=== PATIENT | male | born 1960 | race Caucasian/White ===

== ENCOUNTER 2017-03-01 19:11 | Emergency (ER) | payer SELFPAY ==
[~2017-03-01] VITALS: Ht 177.8 cm; Wt 73.5 kg
[2017-03-01 19:51] VITALS: BP 121/80
--- NOTE | 2017-03-01 19:55 | PHYS DOC ---
Past Medical History Past Medical History: Other Additional Past Medical Histor: RIGHT INGUINAL HERNIA Past Surgical History: Tonsillectomy Alcohol Use: Occasionally Drug Use: Marijuana Adult General Chief Complaint Chief Complaint: ABDOMINAL PAIN HPI HPI Patient is a 56 year old male brought in by his mother with the complaint of pain in the area of his known right inguinal hernia. The patient has had this hernia for about 2 years. He recently mentioned it to his primary care doctor who sent him to see Dr. Pina. He saw Dr. Pina on Saturday and is in the process of getting scheduled for outpatient elective repair. This week, he's had more discomfort especially after his work to whole day. 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 The patient has been worrying about the complications that they talked to him about and he wants his hernia repaired as soon as possible. He's had no vomiting. Review of Systems Review of Systems Constitutional: Denies fever or chills [] GI: Denies abdominal pain, nausea, vomiting, bloody stools or diarrhea [] : Denies dysuria or hematuria or urinary retention Allergies Allergies Allergies Coded Allergies Type Severity Reaction Last Updated Verified No Known Drug Allergies 03/01/17 No Physical Exam Physical Exam Constitutional: Well developed, well nourished, no acute distress, non-toxic appearance. Alert, ambulatory, mentating normally. HENT: Normocephalic, atraumatic, bilateral external ears normal, nose normal. [ ] Eyes: conjunctiva normal, no discharge. [] Neck: Normal range of motion, no stridor. [] Abdomen: Bowel sounds normal, soft, no tenderness, nondistended, no masses, no pulsatile masses. Right inguinal area: There is no discernible "bulge". The right inguinal hernia is palpable. There is mild fullness that is essentially nontender. There is no evidence of incarcerated or strangulated hernia on exam. There is no enlargement of the scrotum. exam unremarkable. Skin: Warm, dry, no erythema, no rash. [] Extremities: No tenderness, no cyanosis, no clubbing, ROM intact, no edema. [] Neurologic: Alert and oriented X 3, normal motor function, normal sensory function, no focal deficits noted. [] Current Patient Data Vital Signs Vital Signs Date Time Temp Pulse Resp B/P (MAP) Pulse Ox O2 Delivery O2 Flow Rate FiO2 03/01/17 19:51 62 16 121/80 (94) 98 Room Air 03/01/17 19:25 97.7 97.7 EKG EKG [] Radiology/Procedures Radiology/Procedures [] Course & Med Decision Making Course & Med Decision Making Pertinent Labs and Imaging studies reviewed. (See chart for details) I discussed with the patient and his mother that his right inguinal hernia certainly does need to be repaired as soon as possible electively, but at this time there is no evidence that it needs to be repaired emergently. I discussed with them the indications for emergent repair. I discussed the case with Dr. Velasco, on-call for surgery. He agrees with the plan and disposition. See instructions for plan. [] Dragon Disclaimer Dragon Disclaimer This electronic medical record was generated, in whole or in part, using a voice recognition dictation system. Departure Departure Impression: Primary Impression: Reducible right inguinal hernia Disposition: HOME, SELF-CARE Condition: STABLE Patient Instructions: Inguinal Hernia, Adult Additional Instructions: Until you are able to be scheduled for surgery, try to stay mostly laying down. Don't do any lifting or straining. If the hernia bulge gets larger, lay down and relax, elevate your legs and pelvis. If the hernia bulge will not improve and severe pain persists, return to emergency. Call Saturday to Dr. Pina's office and they hospital contact number to see if you can get your surgery scheduled, if not, call on March 06. ALEM VOSS MD Mar 01, 2017 19:55
== END 2017-03-01 20:05 | disposition home or self-care (01) ==
LOC: ER 19:11
DX: K40.90 Unilateral inguinal hernia, without obstruction or gangrene, not specified as recurrent (principal); F12.10 Cannabis abuse, uncomplicated; Z98.890 Other specified postprocedural states
CPT/HCPCS: 99284

== ENCOUNTER 2017-03-18 06:30 | Day surgery (SDC) | payer SELFPAY ==
[~2017-03-18] VITALS: Ht 177.8 cm; Wt 74.2 kg
[~2017-03-18 06:30] MED LIST: ASPI-482 PO
[2017-03-18] MEDS ORDERED: PROCHLORPERAZINE 10 MG/2 ML VIAL. IV PRN (07:00)
[2017-03-18] MEDS ORDERED: HYDROmorphone 2 MG/ML VIAL IV PRN (07:00)
[2017-03-18] MEDS ORDERED: IV RINGERS,LACTATED 1000ML 1,000 ML IV SCH (07:00)
[2017-03-18] MEDS ORDERED: fentaNYL PF VIAL 100 MCG/2 ML VIAL IV PRN ×2 (07:00)
[2017-03-18] MEDS ORDERED: LIDOCAINE 1% 1 ML SYRINGE. ID PRN (07:00)
[2017-03-18] MEDS ORDERED: MORPHINE SULFATE 2 MG/ML DISP.SYRIN. IV PRN (07:00)
[2017-03-18] MEDS ORDERED: ONDANSETRON PF 4 MG/2 ML VIAL. IV PRN (07:00)
[2017-03-18] MEDS ORDERED: BUPIVACAINE-EPI 0.5%-1:200000 50 ML VIAL. ONE (07:12)
[2017-03-18] MEDS ORDERED: LIDOCAINE 2% PF Vial for OR 5 ML VIAL. ONE (07:23)
[2017-03-18] MEDS ORDERED: PROPOFOL 20 ML IV ONE ×2 (07:23→08:09)
[2017-03-18] MEDS ORDERED: ONDANSETRON PF 4 MG/2 ML VIAL. ONE (07:23)
[2017-03-18] MEDS ORDERED: DEXAMETHASONE SOD PHOS 20 MG/5 ML VIAL. ONE (07:23)
[2017-03-18] MEDS ORDERED: fentaNYL PF VIAL 100 MCG/2 ML VIAL ONE (07:24)
[2017-03-18 07:27] LABS: BASO # 0.1 x10^3/uL (0.0-0.2); BASO % 1 % (0-3); EOS % 2 % (0-3); HEMATOCRIT 45.7 % (39.0-53.0); HEMOGLOBIN 15.1 g/dL (13.0-17.5); LYMPH # 4.8 x10^3/uL (1.0-4.8); LYMPH % 42 % (24-48); MEAN CORPUSCULAR HEMOGLOBIN 29 pg (25-35); MEAN CORPUSCULAR HGB CONC 33 g/dL (31-37); MEAN CORPUSCULAR VOLUME 87 fL (79-100); MONO % 9 % (0-9); NEUT % 46 % (31-73); PLATELET COUNT 225 x10^3/uL (140-400); RED BLOOD COUNT 5.24 x10^6/uL (4.30-5.70); RED CELL DISTRIBUTION WIDTH 13.2 % (11.5-14.5); WHITE BLOOD COUNT 11.3 x10^3/uL (4.0-11.0)
[2017-03-18] MEDS ORDERED: ePHEDrine PF IN SALINE 50 MG/5 ML DISP.SYRIN IV ONE (07:48)
[2017-03-18 08:10] LABS: CREATININE 0.9 mg/dL (0.7-1.3); GFR 87.3; POTASSIUM 4.2 mmol/L (3.5-5.1)
--- NOTE | 2017-03-18 08:50 | PDOC4 ---
Operative Note Operative Note Date of procedure: March 18, 2017 Procedure: Right inguinal hernia repair with mesh Preoperative diagnosis: Right inguinal hernia Postoperative diagnosis: Same, indirect Surgeon: Yovani Anesthesia: Gen. LMA Indications: Greg is a 56-year-old with pain and fullness in the right groin brought for repair Operative findings: An indirect hernia sac was found. Inguinal floor was intact. Rectal exam revealed a small prostate without nodule Operative report: Patient brought to the operating suite and given a general LMA and the right groin was prepped and draped in usual sterile fashion. Half percent Marcaine with epinephrine was infiltrated along the incision line. Incision made and dissection carried down to the external oblique fascia. Bleeders were cauterized or tied is identified. External by opening the direction of its fibers and extended through the external ring. Cord was swept off the pubis and a Mccaskill drain placed around it. Actually fairly back to the internal ring where an indirect hernia sac was identified, skeletonized, and reduced. It was held in reduction with a small plug of mesh tacked with 2-0 PDS taking care to avoid injury to adjacent vessels. A precut" keyhole" patch was placed over the floor the canal. The slit closed with a single 2-0 PDS stitch. Area was checked for adequate hemostasis and when present and a correct sponge count had been obtained the cord was returned to its normal anatomical position. External black fascia closed over it in running fashion. Skin closed with a subcuticular 4-0 Monocryl and Steri-Strips. Dressing applied. Prior tumor to some anesthesia digital rectal exam failed to reveal evidence of prostatic enlargement or nodularity. Patient awakened from his anesthetic and taken to the recovery room in stable condition. TABITHA TERRY MD Mar 18, 2017 08:50
--- NOTE | 2017-03-18 08:53 | DISCH ---
DISCHARGE INSTRUCTIONS Condition on Discharge Condition on Discharge: Stable Activity After Discharge Activity Instructions for Disc: Resume previous activity, Activity as tolerated , Avoid exertion Lifting Instructions after Dis: No heavy lifting Driving Instructions after Dis: Do not drive (3-4 days) Diet after Discharge Diet after Discharge: Regular Wound Incision Care Wound/Incision Care: Ice to area for comfort Other wound/incision instructi: december shower Saturday Follow-Up Follow up with: Yovani next week TABITHA TERRY MD Mar 18, 2017 08:53
[2017-03-18] MEDS ORDERED: OXYC-323 PO (09:06)
[2017-03-18] MEDS ORDERED: DOCU-150 PO (09:07)
[2017-03-18] MEDS ORDERED: oxyCODONE/APAP 5/325 1 TAB TABLET ONE (09:35)
[2017-03-18] MEDS ORDERED: oxyCODONE/APAP 5/325 1 TAB TABLET PO ONE (09:45)
[2017-03-18 10:00] VITALS: BP 142/91
== END 2017-03-18 10:10 | disposition home or self-care (01) ==
LOC: SURG 06:30
PROVIDERS: ATTEND Surgery
DX: K40.90 Unilateral inguinal hernia, without obstruction or gangrene, not specified as recurrent (principal); F17.200 Nicotine dependence, unspecified, uncomplicated; Z72.89 Other problems related to lifestyle
CPT/HCPCS: 36415; 49505; 80048; 82040; 85027; C1769; C1781; J1100; J2001; J2405; J2704; J3010